=== PATIENT | male | born 1950 | race Caucasian/White ===

== ENCOUNTER 2019-10-12 09:30 | Emergency (ER) | payer OTHER ==
[~2019-10-12] VITALS: Ht 175.3 cm; Wt 79.4 kg
[2019-10-12] MEDS ORDERED: NORVAS PO (09:44)
[2019-10-12] MEDS ORDERED: TOPROL XL100 M1 PO (10:05)
[2019-10-12] MEDS ORDERED: XARELTO15 MG PO (10:05)
[2019-10-12] MEDS ORDERED: TRADJENTA5 MG PO (10:06)
[2019-10-12] MEDS ORDERED: ENALAPRIL MALEA10 MG PO (10:06)
[2019-10-12] MEDS ORDERED: VASOTEC10 MG PO (10:06)
[2019-10-12] MEDS ORDERED: TORVASTATIN PO (10:06)
[2019-10-12] MEDS ORDERED: GLIMEPIRIDE2 M1 PO (10:07)
[2019-10-12] MEDS ORDERED: NORVASC PO (10:16)
[2019-10-12] MEDS ORDERED: ULTRACET PO (15:51)
== END 2019-10-12 17:53 | disposition home or self-care (01) ==
LOC: ER 09:30 → CPU-OBS 10:08 → ER 17:53
DX: R07.2 Precordial pain (principal); R07.89 Other chest pain